=== PATIENT | female | born 1930 | race Caucasian/White ===

== ENCOUNTER 2016-11-07 06:44 | Day surgery (SDC) | payer MEDICARE, BC ==
[~2016-11-07] VITALS: Ht 165.1 cm; Wt 56.0 kg
--- NOTE | ~2016-11-07 | OR ---
PATIENT'S NAME: FACUNDO ESPARZA [facility] AGE: 86 Y [address] ROOM: [place] [id number] LOCATION: GPCU ADMIT DATE: 11/07/2016 OR/Procedure Report DISCHARGE DATE: 11/08/2016 FAMILY PHYSICIAN: Jesus Thurston MD ATTENDING PHYSICIAN: Adonay Spangler SURGEON: Adonay Spangler MD LABORATORY WORKER: DATE OF PROCEDURE: 11/07/2016 PROCEDURE: Dual chamber pacemaker implantation COMPLICATIONS: None PROCEDURE/FINDINGS: Patient brought to the cardiac warehouse laborer in the fasting state and prepped and draped in the normal manner. 1% lidocaine was used for local skin infiltration in the left infraclavicular region. An 18 gauge Cook needle was advanced into the left subclavian vein through which an 0.025 wire was placed. Needle was removed. Proximal end of the wire was attached to the surgical gown with a hemostat. Next, a second access point was obtained also with the 18 gauge Cook needle. 0.025 wire was placed. Needle was removed. Proximal end of the wire was attached to the surgical gown with a hemostat. Attention was then turned towards creation of the pacemaker pocket. Additional 1% lidocaine was used. A #11 blade was used for primary skin incision. Following this, Bovie cautery as well as blunt dissection was used to identify the pectoralis fascia. This was entered into and dissected both cephalad as well as caudally. Following this the previously placed 0.025 wires were brought through the skin into the pacemaker pocket. First wire had a 7F sheath placed onto it. Wire and dilator were removed. Using fluoroscopic guidance, the right ventricular lead was placed. This is a [employer], [employer] lead, model #7741, serial #[id number]. Thresholds were obtained showing a sensing R-wave of 7.1 mV, threshold 0.4 at 0.4 milliseconds pulse width, impedance of 855 ohms. The anchor sleeve was sewn into the pectoralis muscle using two interrupted sutures of zero of Silk. Next, a second 7F sheath was placed onto the remaining wire, wire and dilator were removed. Using fluoroscopic guidance, the right atrial lead was placed. This is also a [employer] INGEVITY, model #7740, serial #[id number]. Thresholds were then obtained showing a P wave of 2.4 mV. Threshold of 0.5 at 0.4 milliseconds pulse width, impedance of 616 ohms. The leads were then connected to the generator which is a by [employer], model number L111,serial #[id number]. Following this the generator with the connected leads were placed into the pacemaker pocket. Subcutaneous layer was closed with 2-0 Vicryl in a running fashion. Next, the subcuticular layer was closed with 4.0 Vicryl also in a running fashion. The patient then had Steri-Strips placed as well as shoulder immobilizer and the dressing was then covered with Tegaderm. She was transferred to PCU in stable condition. PATIENT'S NAME: FACUNDO ESPARZA [facility] AGE: 86 Y [address] ROOM: [place] [id number] [facility] ADMIT DATE: 11/07/2016 OR/Procedure Report DISCHARGE DATE: 11/08/2016 FAMILY PHYSICIAN: Jesus Thurston MD ATTENDING PHYSICIAN: Adonay Spangler CONCLUSION: 1. Dual chamber pacemaker implantation for sick sinus syndrome. 2. Patient instructed not to use her left arm x1 week. 3. Chest x-ray pending at the time of this dictation. 4. Patient will be instructed on the use of the home remote monitoring [employer] system. ADONAY SPANGLER MD DJM/gb /[id number] CC: Printer CARDIOPULMINARY d: 11/11/16 1241 t: 11/29/16 0807, OPERATIVE SUMMARY
[~2016-11-07 06:44] MED LIST: ASPIRIN EC81 MG PO; K-TAB 10MEQ10 MEQ PO; LASIX40 MG PO; PRAVACHOL20 MG PO; TOPROL XL25 MG PO; VASOTEC20 MG PO; XARELTO15 MG PO
[2016-11-07 07:27] LABS: ALBUMIN 3.2 gm/dL (3.5-5.0); ANION GAP 10.2 (10.0-19.0); BLOOD UREA NITROGEN 15 mg/dL (6-24); CALCIUM 8.6 mg/dL (8.5-10.5); CHLORIDE 104 mMol/L (96-110); CO2 29 mMol/L (22-32); CREATININE 0.8 mg/dL (0.5-1.1); PHOSPHORUS 3.1 mg/dL (2.5-4.9); POTASSIUM 4.2 mMol/L (3.7-5.1); SODIUM 139 mMol/L (135-145)
[2016-11-07 07:28] LABS: ESTIMATED GFR (MDRD EQUATION) > 60
--- NOTE | 2016-11-07 15:59 | NUR ---
Significant Event: received from PACU at 1140, A/O X3, 1 assist, voids per toilet, up in chair, lots of family @ bedside. drsg to L)upper chest with scant shadow drng, CSM intact, L)shoulder immobilizer on, ice pack to L)shoulder, IVF R)FA. Follow up: CXR in a.m. plan for home tomorrow
--- NOTE | 2016-11-08 04:49 | NUR ---
Significant Event: A/O, SBP 140-160s, paced HR in 60s, RA, afebrile, Simpson x1 for pacer site pain, ice pack to shoulder, arm immobilizer on, NS running at 75ml/hr to R)hand, SBA transfers Follow up: chest xray this am then home?
[2016-11-08] MEDS ORDERED: NORCO 5-325 TA1 EACH PO (09:25)
== END 2016-11-08 10:15 | disposition disaster alternative care site (69) ==
LOC: GSDC 06:44 → GPCU 06:44 → GPOC 14:00 → GSDC 11-08 10:15
PROVIDERS: Internal Medicine Interventional Cardiology
DX: I49.5 Sick sinus syndrome (principal); I27.2 Other secondary pulmonary hypertension; I48.0 Paroxysmal atrial fibrillation; E78.5 Hyperlipidemia, unspecified; I10 Essential (primary) hypertension; I50.32 Chronic diastolic (congestive) heart failure; I36.1 Nonrheumatic tricuspid (valve) insufficiency; I35.2 Nonrheumatic aortic (valve) stenosis with insufficiency; J44.9 Chronic obstructive pulmonary disease, unspecified; R01.0 Benign and innocent cardiac murmurs; E11.9 Type 2 diabetes mellitus without complications; F41.8 Other specified anxiety disorders; Z79.82 Long term (current) use of aspirin; Z79.01 Long term (current) use of anticoagulants; Z79.899 Other long term (current) drug therapy; Z96.642 Presence of left artificial hip joint; Z90.721 Acquired absence of ovaries, unilateral; Z85.828 Personal history of other malignant neoplasm of skin
CPT/HCPCS: C1785; C1898; J0690; J2001; J2250; J3010; J7030